=== PATIENT | female | born 1990 | race Caucasian/White ===

== ENCOUNTER 2018-05-07 01:38 | Inpatient (IN) ==
[2018-05-07 00:21] LABS: Amphetamine Screen,Urine Negative ng/mL (Cutoff=1000); Barbiturate Screen,Urine Negative ng/mL (Cutoff=200); Benzodiazepines Screen,Urine Negative ng/mL (Cutoff=200); Cannabinoid Screen,Urine Negative ng/mL (Cutoff = 50); Cocaine Screen,Urine Negative ng/mL (Cutoff= 300); Opiate Screen,Urine Negative ng/mL (Cutoff=300); Phencyclidine Screen,Urine Negative ng/mL (Cutoff=25)
[~2018-05-07 01:38] MED LIST: *HR* Nalbuphine 10 MG/ML AMPUL IVP PRN; Famotidine 20 MG/2 ML VIAL IVP PRN; Metoclopramide 10 MG/2 ML VIAL IVP PRN; Naloxone 0.4 MG/ML INJ IVP PRN; Ondansetron 4 MG/2 ML VIAL IVP PRN
[2018-05-07] MEDS ORDERED: Oxytocin 20 units/ LR 1000 mL 20 UNIT/1,000 ML BAG IVC SCH ×2 (01:45→21:47)
[2018-05-07] MEDS ORDERED: Ringers Solution, Lactated 1,000 ML IVC SCH (01:45)
--- NOTE | 2018-05-07 02:09 | OB/GYN History & Physical ---
Date of Encounter: 05/07/18 Time of Encounter: 02:04 Assessment and Plan (1) 39 weeks gestation of Current visit: Yes Status: Acute Admit for labor GBS negative Patient may have nubain and/or epidural upon request Consider AROM and/or pitocin for augmentation if needed Anticipate vaginal delivery POC per consult with Dr Hernandez History of Present Illness Chief complaint: Contractions HPI: Ms. Teran is a 27 year old at 39 weeks and 2 days that presents to labor and delivery with c/o contractions that have worsened throughout the day. This has had no complications. She was seen for adequate care by Dr Brown. She states positive movement. She denies headache, vision changes, epigastric pain, leaking of fluid, and vaginal bleeding Labs: GBS negative UDS negative RPR negative Hep B negative HIV negative Varicella positive Rubella positive Past Med Surg Social Fam HX - Past Medical History Medical history: no medical history Psychiatric history: no psych history - Past Surgical History Surgical History: other Additional surgical history: right and left acl repair. - Social History Smoking Status: Never smoker Smokeless Tobacco Status: No Alcohol use: none Drug use: none - Family History Mother Living Status: Still Living Hx Family Cardiac Disorders: No Hx Family Respiratory Disorders: No Hx Family Cancer: Yes (thyroid ca) Obstetrical History - Pregnancies : 2 Para: 0 Term: 0 : 0 Ab's: 1 Livin Medications and Allergies Adult Probiotic 05/06/18 [History] Pepcid 05/06/18 [History] Tablet 05/06/18 [History] 3 Allergy/AdvReac Type Severity Reaction Status Date / Time No Known Allergies Allergy Verified 05/06/18 23:25 Review of System OB All systems PM: reviewed and no additional remarkable complaints except as stated Exam - Constitutional Constitutional: well developed, well nourished, no acute distress, average body habitus - HEENT HEENT: Normocephaly, Mucus Membranes Moist - Lungs Respiratory exam: CTAB - Cardiovascular Cardiovascular exam: RRR, +S1, +S2 - Abdomen Abdomen: Present: bowel sounds normal, gravid, non tender - Extremities Extremities exam: normal capillary refill, radial pulses palpable and symmetrical Deep Tendon Reflex Grade: 2+ Normal - Cervix Dilation: 6 (Per RN exam) Effacement: 80 Results All other labs normal. - VTE Reasons for not Prescribing Prophylaxis: Treatment not Indicated - Low risk for VTE
[2018-05-07 02:59] LABS: Basophils % 0.3 %; Eosinophils # 0.1 K/mcL (0.0-0.6); Eosinophils % 0.4 %; Hematocrit 34.5 % (35.3-44.9); Hemoglobin 12.1 g/dL (11.5-15.4); Immature Granulocytes % 0.4 % (0-4); Lymphocytes # 1.8 K/mcL (0.6-4.6); Lymphocytes % 11.9 %; Mean Corpuscular HGB Conc 35.1 g/dL (31.6-35.5); Mean Corpuscular Hemoglobin 30.7 pg (28.0-33.3); Mean Corpuscular Volume 87.6 fL (83.0-100.0); Monocytes % 6.4 %; Neutrophils # 12.3 K/mcL (1.6-8.9); Platelet Count 195 K/mcL (140-400); Red Blood Count 3.94 M/mcL (3.82-4.97); Red Cell Distribution Width 12.9 % (11.5-14.5); Segmented Neutrophils % 80.6 %
[2018-05-07] MEDS ORDERED: *HR* Ropivacaine/PF 0.2% 20 ML VIAL EP ONE (08:45)
[2018-05-07] MEDS ORDERED: *HR* FentaNYL (PF) 100 MCG/2 ML VIAL EP ONE (08:45)
[2018-05-07] MEDS ORDERED: Epidural Premix (fent/bupiv) 110 ML EP SCH (08:45)
--- NOTE | 2018-05-07 08:45 | Anesthesia Evaluation PreOp ---
Date of Encounter: 05/07/18 Time of Encounter: 09:40 - Past History Planned Operation: juan pablo Cardiac History: Denies any Significant Hx Pulmonary History: Denies Any Significant HX DIAMOND BROKER History: Denies Any Significant HX Other Medical History: GERD Anesthesia History: No Prior Anesthetic Complications, Past Anesthesia (acl x2) : Yes Test: Positive Alcohol Use: none Drug use: none Medications and Allergies Adult Probiotic 05/06/18 [History] Pepcid 05/06/18 [History] Tablet 05/06/18 [History] 3 Allergy/AdvReac Type Severity Reaction Status Date / Time No Known Allergies Allergy Verified 05/06/18 23:25 - Meds/Allergy Pre-op Review Medications Reviewed: Yes Allergies Reviewed: Yes Beta Blockers on Current Med List: No Anesthesia Results - Labs 05/07/18 02:44 Anesthesia Exam 130/87 88 16 fht 144 Height: 5'6" Weight: 80 NPO (# of Hours): 3 Pain Scale: 3 Pain Scale Used: Numeric (1 - 10) - HEENT Pupil (Motor): Pupils equal Mallampati: II Teeth: Normal Oral Opening: Greater than 3 - DIAMOND BROKER LOC: Oriented DIAMOND BROKER Motor: Normal RUE, Normal LUE, Normal RLE, Normal LLE, Normal Face DIAMOND BROKER Sensory: Normal: RUE, LUE, RLE, LLE, Face - Cardiac Rhythm: Regular Murmur: None - Pulmonary Breath Sounds: bilateral Clear Respiratory Effort: Symmetrical Anesthesia Assess/Plan ASA Score: 2 Modified [place] Scale for Level of Consciousness: Cooperative, oriented, and tranquil Anesthetic Plan: Regional Autologous Blood: No Monitoring Plan: Standard Monitors Recovery Plan: Other (risks discussed, quesations answered, not consented at this time per pt req)
--- NOTE | 2018-05-07 10:47 | OB Labor Progress Note ---
Date of Encounter: 05/07/18 Time of Encounter: 10:45 Labor Progress Note - Subjective Subjective: Pt reports increasing discomfort with contractions but desires to avoid medication or epidural. - Heart Tones Heart Tones: Category I - [place]: 2-3 minutes - Plan Plan: Continue to monitor and titrate pitocin if needed. Pt desires a natural to the extent possible.
[2018-05-07] MEDS ORDERED: *HR* FentaNYL (PF) 100 MCG/2 ML VIAL ONE (18:32)
[2018-05-07] MEDS ORDERED: Morphine Sulfate/PF 5mg/10mL Vial ONE (18:32)
[2018-05-07] MEDS ORDERED: *HR* Oxytocin 10 UNIT/ML VIAL IM ONE (18:36)
--- NOTE | 2018-05-07 18:52 | OB Labor Progress Note ---
Date of Encounter: 05/07/18 Time of Encounter: 18:18 Labor Progress Note - Subjective Subjective: Pt reports increasing pressure with contractions. - Cervix Cervix: 7-8/100/0 - Heart Tones Heart Tones: Category I - [place]: Q2-3 - Plan Plan: Breach presentation noted on SVE. Dr. Manning notified. Plan for urgent cesaren delivery.
--- NOTE | 2018-05-07 19:10 | Anesthesia Procedures ---
Date of Encounter: 05/07/18 Time of Encounter: 19:06 Procedures: Anesthesia - Epidural/Spinal Patient ID/Chart reviewed: Yes Patient examined: Yes OB Eval: Gestational age: 39 OB Eval: : 1 OB Eval: Hx Para: 0 OB Eval: Dilated at (cm): 8 OB Eval: Contractions: Non-stressed pattern Consent Obtained: Yes Supplemental Oxygen: Nasal Cannula Supplemental Oxygen Rate (L/min): 3 Site Prep: Aseptic Technique, Sterile prep and drape, 0.5% Chlorhexidine/Alcohol Patient position: upright Local Anesthetic: Lidocaine 1% Amount of Local Anesthetic used: 3 Interspace Used: L2-L3 Loss of Resistance (LEWIS): No Blood: No CSF: Yes Paresthesia: No Spinal Dose: marcaine 12 mg duramorph 0.25mg fentanyl 10 mcg Procedure: aseptic, zac well VSS, effective Vitals + FHT's: 112/60 65 16 fht 133
[2018-05-07] MEDS ORDERED: *HR* Meperidine 25 MG/ML SYRINGE IVP PRN (19:11)
[2018-05-07] MEDS ORDERED: *HR* FentaNYL (PF) 100 MCG/2 ML VIAL IVP PRN (19:11)
[2018-05-07] MEDS ORDERED: *HR* OxyCODONE Immed Rel 5 MG TABLET PO PRN (19:11)
[2018-05-07] MEDS ORDERED: Ondansetron 4 MG/2 ML VIAL IVP ONE (19:11)
[2018-05-07] MEDS ORDERED: Acetaminophen IV 1,000 MG/100 ML INFUS..BTL IVPB ONE (19:11)
[2018-05-07] MEDS ORDERED: Ondansetron 4 MG/2 ML VIAL ONE (19:27)
--- NOTE | 2018-05-07 19:47 | OB/GYN Procedure Note ---
Section - Date of procedure: 05/07/18 Preop diagnosis: breech Post-op diagnosis: same Procedure: section, primary low transverse Surgeon: Sherice Delgadillo Blood Loss: 300 Was there an orthodontist assistant present: Yes Railroad Dining Car Stewardess: Cinthia Barriga Long Filler Cigar Roller Machine: Sal Oneal Anesthesia Type: Spinal section complications: none Disposition: PACU Specimens: Placenta - Infant (s) Infant A Delivery Date: 05/07/18 Delivery Time: 19:08 Presentation: darnell breech Route of delivery: breech extraction Gender: Male Viability: Viable Pounds: 7 Ounces: 1 Gram Weight: 3.2 kg at 1 minute: 8 at 5 minutes: 9 Shoulder Dystocia: not encountered Placenta: spontaneous Cord: nuchal cord, 3 umbilical vessels - Narrative Narrative: Patient was taken to the operative suite and placed under spinal anesthetic. She was then prepped and draped in normal sterile fashion in the dorsal supine position. Timeout was then performed. Antibiotics were given at room time. SCDs are on and active. Pfannenstiel skin incision is then made and carried through to underlying layer of fascia with the Bovie. The fascia was then incised in the midline and incision extended laterally with the Mascorro scissors. The fascia was tented up and dissected off the rectus muscles sharply. The rectus muscles were in the midline and the peritoneum was tented up and entered sharply with the Metzenbaum scissors. The peritoneal incision was then extended bluntly. The bladder blade was then inserted and the vesicouterine peritoneum was entered sharply. Bladder flap was created digitally. A low transverse uterine incision was then made. The breech was brought to the incision and the was delivered using fundal pressure. There was a loose nuchal cord that was reduced. Cord was clamped and cut. was handed to waiting nursery staff. Placenta delivered spontaneously complete and intact with a three-vessel cord. The uterus was cleared of all clots and debris using moist laparotomy sponge. The uterine incision was then closed using 0 Vicryl in a running locked fashion. A second layer of the same suture was used to obtain excellent hemostasis. The abdomen was then cleared of all clots and debris using copious irrigation. The fascial incision was then closed using 0 Vicryl in a running fashion. The skin was closed using 4-0 Vicryl in a subcuticular fashion. Steri- Strips and sterile dressing are then placed. Mother and infant taken to recovery in stable condition.
[2018-05-07] MEDS ORDERED: *HR* OxyCODONE/APAP 5/325 TABLET PO PRN (21:47)
[2018-05-07] MEDS ORDERED: Acetaminophen 325 MG TABLET PO PRN (21:47)
[2018-05-07] MEDS ORDERED: Metoclopramide 10 MG/2 ML VIAL IVP PRN (21:47)
[2018-05-07] MEDS ORDERED: Sennosides 8.6 MG TABLET PO PRN (21:47)
[2018-05-07] MEDS ORDERED: Ondansetron 4 MG/2 ML VIAL IVP PRN (21:47)
[2018-05-08] MEDS: Prenatal Vit/FA 1 EACH TABLET PO SCH (09:15)
[2018-05-08] MEDS: Ibuprofen 600 MG TABLET PO PRN ×2 (09:16→20:05)
[2018-05-08] MEDS: Simethicone 80 MG TAB.CHEW PO PRN ×2 (09:16→20:05)
--- NOTE | 2018-05-08 10:18 | OB/GYN Progress Note ---
Date of Encounter: 05/08/18 Time of Encounter: 10:16 - Assessment and Plan (1) S/P section Current Visit: Yes Status: Acute Stable POD #1 If no void will straight cath Continue current management anticipate DC tomorrow. Subjective - Subjective Patient reports: pain well controlled, ambulating normally, no voiding normally (has not voided since dumont removed. ) [place]: doing well Objective - Vital Signs Latest vital signs: Vital Signs Temp Pulse Resp BP Pulse Ox 05/08/18 09:00 98.8 F 108 16 124/62 97 05/08/18 05:25 99.3 F 102 16 104/67 95 05/08/18 00:45 97.9 F 96 14 128/76 96 05/07/18 23:45 98.8 F 96 16 110/70 95 05/07/18 22:45 98.1 F 90 16 107/66 96 05/07/18 22:15 97.7 F 99 16 104/59 97 05/07/18 21:45 98.4 F 93 16 112/58 96 Intake and Output 05/07/18 05/08/18 05/08/18 23:59 07:59 15:59 Intake Total 1000 / 1000 Output Total 1200 / 1200 1500 / 1500 Balance -1200 / -1200 -500 / -500 Intake: Oral 1000 / 1000 Output: Straight Cath 1200 / 1200 Catheter 1500 / 1500 Other: Weight 74.571 kg Patient Weight 05/08/18 23:59 Weight 74.571 kg - Exam Lungs: bilateral: normal Chest: Normal S1, Normal S2 Abdomen: Present: normal appearance, soft Incision: Present: dressed Uterus: Present: firm (at U)
--- NOTE | 2018-05-09 08:55 | Discharge Summary ---
Date of Encounter: 05/09/18 Time of Encounter: 08:52 - Discharge Diagnosis (1) Breast feeding status of mother Priority: Secondary Status: Acute Comments: support prn (2) S/P section Priority: Primary Status: Acute Comments: Continue routine care discharge home today follow up with Dr. Manning in 2 weeks for incision check - Discharge Medications Prescriptions: OxyCODONE/APAP 5/325 [Percocet 5/325 MG] 1 each PO Q4HR PRN 5 Days #30 tablet PRN Reason: Moderate pain 4-6 Ibuprofen [Motrin] 600 mg PO Q6HR PRN #60 tablet PRN Reason: Cramping Docusate [Colace] 100 mg PO BID #30 capsule Home Medications: Tablet 05/06/18 [History] Docusate [Colace] 100 mg PO BID #30 capsule 05/09/18 [Rx] Ibuprofen [Motrin] 600 mg PO Q6HR PRN #60 tablet 05/09/18 [Rx] OxyCODONE/APAP 5/325 [Percocet 5/325 MG] 1 each PO Q4HR PRN 5 Days #30 tablet [Rx] Allergies/Adverse Reactions: 3 Allergy/AdvReac Type Severity Reaction Status Date / Time No Known Allergies Allergy Verified 05/06/18 23:25 Data Procedures and tests throughout hospitalization: Laboratory Tests 05/06/18 05/07/18 05/07/18 23:45 02:44 02:44 WBC 15.3 H RBC 3.94 Hgb 12.1 Hct 34.5 L MCV 87.6 MCH 30.7 MCHC 35.1 RDW 12.9 Plt Count 195 MPV 10.0 Immature Gran % 0.4 Seg Neutrophils % 80.6 Lymphocytes % 11.9 Monocytes % 6.4 Eosinophils % 0.4 Basophils % 0.3 Neutrophils # 12.3 H Lymphocytes # 1.8 Monocytes # 1.0 Eosinophils # 0.1 Basophils # 0.0 Urine Opiates Screen Negative Ur Barbiturates Screen Negative Ur Phencyclidine Scrn Negative Ur Amphetamines Screen Negative U Benzodiazepines Scrn Negative Urine Cocaine Screen Negative U Marijuana (THC) Screen Negative Ur Drug Screen Interp See Below Blood Type A POSITIVE Antibody Screen NEGATIVE Date of admission: 05/07/18 01:38 Primary care physician: PCP NONE Discharging clinician: Mali Cardozo Anticipated date of discharge: 05/09/18 - Patient Status Disposition: Home, Self-Care Condition: Good Functional capacity at discharge: independent ambulation - Discharge Instructions Follow Up With: NONE,PCP [Primary Care Provider] - Sherice Manning DO [Partnered Physician] - - Diet and Activity Activity: increase activity as tolerated Diet: regular diet Hospital Course Procedures: OARRs report reviewed by JAGDEEP Gallardo Reason for admission: active labor Delivery: section (for breech) Episiotomy: none Laceration: none Other procedures: none complications: none Discharge diagnosis: IUP at term delivered [place] baby: male (breast feeding) Time Attestation: Total time spent providing and/or coordinating discharge services: Time Spent: Less than 30 minutes - VTE Reasons for not Prescribing Prophylaxis: Treatment not Indicated - Low risk for VTE Documentation of Mechanical Device: Intermittent pneumatic compression device Exam - Constitutional Vitals: Temp Pulse Resp BP Pulse Ox 98.9 F 96 16 111/71 99 05/08/18 20:01 05/08/18 20:01 05/08/18 20:01 05/08/18 20:01 05/08/18 20:01 General appearance IM: A&O X 3, pleasant, answers questions appropriately - GI/Abdominal GI/Abdominal exam IM: normal bowel sounds Incision: normal, dry, intact Additional comments: medipore dressing removed. Steri strips and binder present - Uterine Tone: Firm Uterus Position: 1 Finger Below Umbilicus, Midline - Extremities Exam Extremities exam IM: Present: full ROM, normal capillary refill, normal inspection - Neurological Exam Neurological exam: alert, oriented X3, reflexes normal
[2018-05-09] MEDS: Prenatal Vit/FA 1 EACH TABLET PO SCH (11:24)
[2018-05-09 11:43] VITALS: BP 107/72
== END 2018-05-09 13:02 | disposition home or self-care (01) | DRG 540 ==
LOC: 1NENULAB → 1NENUOBS 22:56
PROVIDERS: ADMIT Advanced Practice Midwife; ATTEND Advanced Practice Midwife